=== PATIENT | female | born 1945 | race Caucasian/White ===

== ENCOUNTER 2017-04-05 12:50 | Observation (INO) | payer MEDICARE, BC ==
[~2017-04-05] VITALS: Ht 154.9 cm; Wt 94.9 kg
[~2017-04-05 12:50] MED LIST: ASPI81TA11 PO; CRAN500C2 PO; DIAZ5 PO; ESTR.3 PO; LACTCAP7 PO; LEXA10TA PO; PRAV40TA PO; VENTAER INH; XANA1TAB6 PO
[2017-04-05 13:20] VITALS: BP 135/81; PULSE 96; RESP 18; TEMP 97.8; O2SAT 94
[2017-04-05] MEDS ORDERED: ASPI-516 CHEW (13:55)
[2017-04-05] MEDS ORDERED: WARF-23 PO (13:55)
[2017-04-05] MEDS ORDERED: METF500T PO (13:55)
[2017-04-05] MEDS ORDERED: CARD120T4 PO (13:55)
[2017-04-05] MEDS ORDERED: PRAV40TA PO (13:55)
[2017-04-05] MEDS ORDERED: ADVA250A INH (13:55)
[2017-04-05] MEDS ORDERED: LEXA20TA PO (13:55)
[2017-04-05] MEDS ORDERED: ALPR.25 PO (13:55)
--- NOTE | 2017-04-05 14:04 | PD ---
HPI Chief Complaint: Abnormal Results Time Seen by Provider: 13:43 Travel History International Travel<30 days: No Contact w/Intl Traveler<30days: No Traveled to known affect area: No History of Present Illness HPI 71yo F with PMH of afib on coumadin presents to the ED for supratherapeutic INR. Pt went to get it check today and it was 8 so was sent here. Pt has a fall 5 days ago and was evaluated by [facility]. She did noticed more bruising in her right thigh and foot after that. Denies any headache, chest pain, sob, n/v, abdominal pain, black stool, blood in stool or urine, focal weakness or numbness. Last took coumadin 5mg last night. Last INR check was 2 weeks ago and it was 3 or 4. PFSH Past Medical History Hx Anticoagulant Therapy: Yes Atrial Fibrillation: Yes Depression: Yes Cancer: Yes Cardiovascular Problems: Yes (mitral valve stenosis, cardiac cath) COPD: Yes Diabetes: Yes Patient Takes Glucophage: Yes Diminished Hearing: No Endocrine: No Gastrointestinal Disorders: No (diverticulitis) Genitourinary: No Hepatitis: No Hiatal Hernia: No Hypertension: No Immune Disorder: Yes (fibromyalgia) Musculoskeletal: No Neurologic: No Psychiatric: Yes (anxiety) Reproductive: Yes Respiratory: Yes (asthma,sleep apnea,copd, uses a machine) Immunizations Current: No Thyroid Disease: No Past Surgical History Abdominal Surgery: No AICD: No Cardiac Surgery: No Ear Surgery: No Endocrine Surgery: No Eye Surgery: No Genitourinary Surgery: Yes (kidney stone removed) Gynecologic Surgery: Yes (BILATERAL S&O) Hysterectomy: Yes (partial) Joint Replacement: No Neurologic Surgery: No Oral Surgery: Yes (t and a) Pacemaker: No Thoracic Surgery: No Other Surgery: Yes Social History Alcohol Use: No Tobacco Use: No Substance Use: No Allergies-Medications (Allergen,Severity, Reaction): Coded Allergies: No Known Allergies (Verified , 12/05/15) Reported Meds & Prescriptions Reported Meds & Active Scripts Active Reported Metoprolol Tartrate 25 Mg Tab 25 Mg PO BID Cefdinir 300 Mg Cap 300 Mg PO BID Glipizide 5 Mg Tab 5 Mg PO BIDAC Take 30 minutes before a meal Montelukast (Montelukast Sodium) 10 Mg Tab 10 Mg PO HS Advair Diskus Inh (Fluticasone-Salmeterol Inh) 250-50 Mcg/Blist Aer 1 Puff INH BID Rinse mouth after use. Aspirin 81 Mg Chew 81 Mg CHEW DAILY Cardizem (Diltiazem HCl) 120 Mg Tab 120 Mg PO DAILY Warfarin 5 Mg Tab 5 Mg PO DAILY Xanax (Alprazolam) 0.25 Mg Tab 1 Mg PO Q8H PRN Lexapro (Escitalopram Oxalate) 20 Mg Tab 20 Mg PO DAILY Pravachol (Pravastatin) 40 Mg Tab 80 Mg PO DAILY Metformin (Metformin HCl) 500 Mg Tab 500 Mg PO BID With a meal Review of Systems Except as stated in HPI: all other systems reviewed are Neg Physical Exam Narrative GENERAL: 71yo F not in distress. SKIN: Ecchymoses in right lateral thigh. HEAD: Atraumatic. Normocephalic. EYES: Pupils equal and round. No scleral icterus. No injection or drainage. ENT: No nasal bleeding or discharge. Mucous membranes pink and moist. NECK: Trachea midline. No JVD. CARDIOVASCULAR: Regular rate and rhythm. No murmur appreciated. RESPIRATORY: No accessory muscle use. Clear to auscultation. Breath sounds equal bilaterally. GASTROINTESTINAL: Abdomen soft, non-tender, nondistended. MUSCULOSKELETAL: No obvious deformities. No clubbing. No cyanosis. No edema. NEUROLOGICAL: Awake and alert. No obvious cranial nerve deficits. Motor grossly within normal limits. Normal speech. PSYCHIATRIC: Appropriate mood and affect; insight and judgment normal. Data Data Last Documented VS Vital Signs Date Time Temp Pulse Resp B/P (MAP) Pulse Ox O2 Delivery O2 Flow Rate FiO2 04/05/17 13:20 97.8 96 18 135/81 (99) 94 Orders Orders Complete Blood Count With Diff (04/05/17 13:43) Basic Metabolic Panel (Bmp) (04/05/17 13:43) Prothrombin Time / Inr (Pt) (04/05/17 13:43) Act Partial Throm Time (Ptt) (04/05/17 13:43) Phytonadione (Mephyton) (04/05/17 15:45) Place In Observation (04/05/17 ) Vital Signs (Adult) Q4H (04/05/17 15:45) Activity Oob Ad Lexis (04/05/17 15:45) Sodium Chloride 0.9% Flush (Ns Flush) (04/05/17 15:45) Sodium Chloride 0.9% Flush (Ns Flush) (04/05/17 21:00) Acetaminophen (Tylenol) (04/05/17 15:45) Prothrombin Time / Inr (Pt) (04/06/17 06:00) Naloxone Inj (Narcan Inj) (04/05/17 15:45) Admit Order (Ed Use Only) (04/05/17 15:48) Labs Laboratory Tests Test 04/05/17 14:12 White Blood Count 10.0 TH/MM3 Red Blood Count 4.59 MIL/MM3 Hemoglobin 13.5 GM/DL Hematocrit 40.1 % Mean Corpuscular Volume 87.2 FL Mean Corpuscular Hemoglobin 29.4 PG Mean Corpuscular Hemoglobin Concent 33.7 % Red Cell Distribution Width 14.0 % Platelet Count 202 TH/MM3 Mean Platelet Volume 7.3 FL Neutrophils (%) (Auto) 75.1 % Lymphocytes (%) (Auto) 13.2 % Monocytes (%) (Auto) 8.0 % Eosinophils (%) (Auto) 0.3 % Basophils (%) (Auto) 3.4 % Neutrophils # (Auto) 7.6 TH/MM3 Lymphocytes # (Auto) 1.3 TH/MM3 Monocytes # (Auto) 0.8 TH/MM3 Eosinophils # (Auto) 0.0 TH/MM3 Basophils # (Auto) 0.3 TH/MM3 CBC Comment DIFF FINAL Differential Comment Prothrombin Time 88.3 SEC Prothromb Time International Ratio 8.9 RATIO Activated Partial Thromboplast Time 55.1 SEC Blood Urea Nitrogen 22 MG/DL Creatinine 0.83 MG/DL Random Glucose 99 MG/DL Calcium Level 9.2 MG/DL Sodium Level 136 MEQ/L Potassium Level 4.0 MEQ/L Chloride Level 105 MEQ/L Carbon Dioxide Level 20.1 MEQ/L Anion Gap 11 MEQ/L Estimat Glomerular Filtration Rate 68 ML/MIN Hemoglobin A1c 10.0 % MDM Medical Decision Making Medical Screen Exam Complete: Yes Emergency Medical Condition: Yes Differential Diagnosis Supratherapeutic INR Narrative Course 71yo F sent here because of supratherapeutic INR today. Denies any bleeding but does have some ecchymoses from falling over five days ago. Hemaprompt negative. Labs reviewed, no leukocytosis. H/H normal. BMP unremarkable. INR elevated at 8.9. Pt given vitamin K 2.5mg PO. Discussed with Dr. Gillis and accepted to her service. Diagnosis Primary Impression: Supratherapeutic INR Admitting Information Admitting Physician Requests: Observation Sarina Salas DO Apr 05, 2017 14:04
[2017-04-05 14:19] LABS: AUTOMATED NEUTROPHIL # 7.6 TH/MM3 (1.8-7.7); BASOPHIL # 0.3 TH/MM3 (0-0.2); BASOPHIL % 3.4 % (0.0-2.0); EOSINOPHIL % 0.3 % (0.0-4.0); HEMATOCRIT 40.1 % (35.0-46.0); LYMPH % 13.2 % (9.0-44.0); LYMPHOCYTE # 1.3 TH/MM3 (1.0-4.8); MEAN CELL VOLUME 87.2 FL (80.0-100.0); MEAN CORPUSCULAR HEMOGLOBIN 29.4 PG (27.0-34.0); MEAN CORPUSCULAR HGB CONC 33.7 % (32.0-36.0); NEUT % 75.1 % (16.0-70.0); PLATELET COUNT 202 TH/MM3 (150-450); RED BLOOD COUNT 4.59 MIL/MM3 (4.00-5.30)
[2017-04-05 14:30] LABS: HEMO FLAGS DIFF FINAL
[2017-04-05 14:37] LABS: BICARBONATE 20.1 MEQ/L (21.0-32.0)
[2017-04-05 14:40] LABS: APTT (PATIENT) 55.1 SEC (24.3-30.1); PROTHROMBIN TIME - PATIENT 88.3 SEC (9.8-11.6)
[2017-04-05 15:28] LABS: INTERNATIONAL NORMALIZED RATIO 8.9 RATIO
[2017-04-05] MEDS ORDERED: PHYTONADIONE 5 MG TAB PO ONE ×2 (15:45→16:00)
[2017-04-05] MEDS ORDERED: ACETAMINOPHEN 325 MG TAB PO PRN (15:45)
[2017-04-05] MEDS ORDERED: NALOXONE HCL 0.4 MG/ML AMP IV PUSH PRN (15:45)
[2017-04-05] MEDS ORDERED: SODIUM CHLORIDE 0.9% FLUSH 10 ML FLUSH IV FLUSH PRN (15:45)
[2017-04-05] MEDS ORDERED: MONT10TA4 PO (16:29)
[2017-04-05] MEDS ORDERED: CEFD300C PO (16:29)
[2017-04-05] MEDS ORDERED: GLIP5TAB8 PO (16:29)
[2017-04-05] MEDS ORDERED: METO25TA3 PO (16:29)
[2017-04-05 17:30] VITALS: BP 134/83; PULSE 97; RESP 20; TEMP 98.8; O2SAT 94
[2017-04-05] MEDS ORDERED: GLUCAGON 1 MG/ML VIAL OTHER PRN (17:30)
[2017-04-05] MEDS ORDERED: DEXTROSE 50% IN WATER 50 ML VIAL(D50) IV PUSH PRN (17:30)
[2017-04-05] MEDS ORDERED: ALPRAZolam 1 MG TAB PO PRN (17:45)
--- NOTE | 2017-04-05 17:51 | HHI.HP ---
[facility] Service [facility] Primary Care Physician Non-Staff Admission Diagnosis Supratherapeutic INR Diagnoses: Chief Complaint: bruisies, sent by coumadin Clinic Travel History International Travel<30 Days: No Contact w/Intl Traveler <30 Da: No Traveled to Known Affected Are: No History of Present Illness Patient is a 71 female with Afib and on Coumadin. She was recently prescribed Macrobid and Cefdinir for a uti and recently diagnosed with DM. She had noticed some bruises and petechia. She came in the room she came to the emergency room after being sent by the Coumadin clinic for an INR of 8. She had no gas intestinal bleeding or urinary bleeding but did notice some minor epistaxis. INR here is 8.9 and she does have gross bruises and petechiae visible. Patient is recommended for observation Review of Systems Constitutional: DENIES: Diaphoretic episodes, Fatigue, Fever, Weight gain, Weight loss, Chills, Dizziness, Change in appetite, Night Sweats Endocrine: DENIES: Abnorml menstrual pattern, Heat/cold intolerance, Polydipsia , Polyuria, Polyphagia Eyes: DENIES: Blurred vision, Diplopia, Eye inflammation, Eye pain, Vision loss , Photosensitivity, Double Vision Ears, nose, mouth, throat: DENIES: Tinnitus, Hearing loss, Vertigo, Nasal discharge, Oral lesions, Throat pain, Hoarseness, Ear Pain, Running Nose, Epistaxis, Sinus Pain, Toothache, Odynophagia Respiratory: DENIES: Apneas, Cough, Snoring, Wheezing, Hemoptysis, Sputum production, Shortness of breath Cardiovascular: DENIES: Chest pain, Palpitations, Syncope, Dyspnea on Exertion , PND, Lower Extremity Edema, Orthopnea, Claudication Gastrointestinal: DENIES: Abdominal pain, Black stools, Bloody stools, Constipation, Diarrhea, Nausea, Vomiting, Difficulty Swallowing, Anorexia Genitourinary: DENIES: Abnormal vaginal bleeding, Dysmenorrhea, Dyspareunia, Sexual dysfunction, Urinary frequency, Urinary incontinence, Urgency, Hematuria , Dysuria, Nocturia, Vaginal discharge Musculoskeletal: DENIES: Joint pain, Muscle aches, Stiffness, Joint Swelling, Back pain, Neck pain Integumentary: DENIES: Abnormal pigmentation, Pruritus, Rash, Nail changes, Breast masses, Breast skin changes, Nipple discharge Hematologic/lymphatic: COMPLAINS OF: Bruising, DENIES: Lymphadenopathy Immunologic/allergic: DENIES: Eczema, Urticaria Neurologic: DENIES: Abnormal gait, Headache, Localized weakness, Paresthesias, Seizures, Speech Problems, Tremor, Poor Balance Psychiatric: DENIES: Anxiety, Confusion, Mood changes, Depression, Hallucinations, Agitation, Suicidal Ideation, Homicidal Ideation, Delusions Except as stated in HPI: all other systems reviewed are Neg Past Family Social History Past Medical History Afib New DM2 COPD HAZEL Uterine CA Kidney stone Essential tremor Past Surgical History NATASHA Reported Medications Recent abx, Allergies: Coded Allergies: No Known Allergies (Verified , 12/05/15) Active Ordered Medications reviewed in the EMR Family History Healthy family Social History No tobacco or etoh, retired Physical Exam Vital Signs Vital Signs Date Time Temp Pulse Resp B/P (MAP) Pulse Ox O2 Delivery O2 Flow Rate FiO2 04/05/17 13:20 97.8 96 18 135/81 (99) 94 Physical Exam GENERAL: This is a well-nourished, well-developed patient, in no apparent distress. SKIN: No rashes,but diffuse petechia and ecchymosis. Cool and dry. HEAD: Atraumatic. Normocephalic. No temporal or scalp tenderness. EYES: Pupils equal round and reactive. Extraocular motions intact. No scleral icterus. No injection or drainage. ENT: Nose without bleeding, purulent drainage or septal hematoma. Throat without erythema, tonsillar hypertrophy or exudate. Uvula midline. Airway patent. NECK: Trachea midline. No JVD or lymphadenopathy. Supple, nontender, no meningeal signs. CARDIOVASCULAR: Regular rate and rhythm without murmurs, gallops, or rubs. RESPIRATORY: Clear to auscultation. Breath sounds equal bilaterally. No wheezes , rales, or rhonchi. GASTROINTESTINAL: Abdomen soft, non-tender, nondistended. No hepato-splenomegaly , or palpable masses. No guarding. MUSCULOSKELETAL: Extremities without clubbing, cyanosis, or edema. No joint tenderness, effusion, or edema noted. No calf tenderness. Negative Homans sign bilaterally. NEUROLOGICAL: Awake and alert. Cranial nerves II through XII intact. Motor and sensory grossly within normal limits. Five out of 5 muscle strength in all muscle groups. Normal speech. Laboratory Laboratory Tests Test 04/05/17 14:12 White Blood Count 10.0 Red Blood Count 4.59 Hemoglobin 13.5 Hematocrit 40.1 Mean Corpuscular Volume 87.2 Mean Corpuscular Hemoglobin 29.4 Mean Corpuscular Hemoglobin Concent 33.7 Red Cell Distribution Width 14.0 Platelet Count 202 Mean Platelet Volume 7.3 Neutrophils (%) (Auto) 75.1 Lymphocytes (%) (Auto) 13.2 Monocytes (%) (Auto) 8.0 Eosinophils (%) (Auto) 0.3 Basophils (%) (Auto) 3.4 Neutrophils # (Auto) 7.6 Lymphocytes # (Auto) 1.3 Monocytes # (Auto) 0.8 Eosinophils # (Auto) 0.0 Basophils # (Auto) 0.3 CBC Comment DIFF FINAL Differential Comment Prothrombin Time 88.3 Prothromb Time International Ratio 8.9 Activated Partial Thromboplast Time 55.1 Blood Urea Nitrogen 22 Creatinine 0.83 Random Glucose 99 Calcium Level 9.2 Sodium Level 136 Potassium Level 4.0 Chloride Level 105 Carbon Dioxide Level 20.1 Anion Gap 11 Estimat Glomerular Filtration Rate 68 Result Diagram: 04/05/17 1412 04/05/17 141 Caprini VTE Risk Assessment Caprini VTE Risk Assessment: Mod/High Risk (score >= 2) VTE Pharm Contraindication: Coagulopathy,INR elevated Caprini Risk Assessment Model Point Value = 1 Point Value = 2 Point Value = 3 Point Value = 5 Age 41-60 Minor surgery BMI > 25 kg/m2 Swollen legs Varicose veins or History of unexplained or recurrent spontaneous Oral contraceptives or hormone replacement Sepsis (< 1 month) Serious lung disease, including pneumonia (< 1 month) Abnormal pulmonary function Acute myocardial infarction Congestive heart failure (< 1 month) History of inflammatory bowel disease Medical patient at bed rest Age 61-74 Arthroscopic surgery Major open surgery (> 45 min) Laparoscopic surgery (> 45 min) Malignancy Confined to bed (> 72 hours) Immobilizing plaster cast Central venous access Age >= 75 History of VTE Family history of VTE Factor V Leiden Prothrombin 05201A Lupus anticoagulant Anticardiolipin antibodies Elevated serum homocysteine Heparin-induced thrombocytopenia Other congenital or acquired thrombophilia Stroke (< 1 month) Elective arthroplasty Hip, pelvis, or leg fracture Acute spinal cord injury (< 1 month) Prophylaxis Regimen Total Risk Factor Score Risk Level Prophylaxis Regimen 0-1 Low Early ambulation 2 Moderate Order ONE of the following: *Sequential Compression Device (SCD) *Heparin 5000 units SQ BID 3-4 Higher Order ONE of the following medications: *Heparin 5000 units SQ TID *Enoxaparin/Lovenox 40 mg SQ daily (WT < 150 kg, CrCl > 30 mL/min) *Enoxaparin/Lovenox 30 mg SQ daily (WT < 150 kg, CrCl > 10-29 mL/min) *Enoxaparin/Lovenox 30 mg SQ BID (WT < 150 kg, CrCl > 30 mL/min) AND/OR *Sequential Compression Device (SCD) 5 or more Highest Order ONE of the following medications: *Heparin 5000 units SQ TID (Preferred with Epidurals) *Enoxaparin/Lovenox 40 mg SQ daily (WT < 150 kg, CrCl > 30 mL/min) *Enoxaparin/Lovenox 30 mg SQ daily (WT < 150 kg, CrCl > 10-29 mL/min) *Enoxaparin/Lovenox 30 mg SQ BID (WT < 150 kg, CrCl > 30 mL/min) AND *Sequential Compression Device (SCD) Assessment and Plan Problem List: (1) Elevated INR ICD Code: R79.1 - Abnormal coagulation profile Plan: likely due to recent abx for uti (macrobid and cefidinir) repeat in am (2) DM2 (diabetes mellitus, type 2) ICD Code: E11.9 - Type 2 diabetes mellitus without complications Plan: New diagnosis Accucheck (3) Afib ICD Code: I48.91 - Unspecified atrial fibrillation Plan: On coumadin, held due to INR elevated and bruises Discussed Condition With likely dc in am pending INR Cuca Gillis MD Apr 05, 2017 17:51
[2017-04-05 20:00] VITALS: BP 128/94; PULSE 102; RESP 20; TEMP 97.6; O2SAT 96
[2017-04-05 20:42] LABS: BLOOD, URINE LARGE (NEG); GLUCOSE,URINE 1000 OR GREATER mg/dL (NEG); KETONE, URINE TRACE mg/dL (NEG); NITRITE,URINE NEG (NEG)
[2017-04-05 20:48] LABS: METHOD OF COLLECTION CLEAN CATCH
[2017-04-05 20:49] LABS: URINE COLOR AMBER (YELLW/STRAW)
[2017-04-05] MEDS: METOPROLOL TARTRATE 25 MG TAB PO SCH (20:49)
[2017-04-05] MEDS: SODIUM CHLORIDE 0.9% FLUSH 10 ML FLUSH IV FLUSH SCH (20:49)
[2017-04-05 20:50] LABS: RBC, URINE INNUM /hpf (0-3)
[2017-04-05 20:51] LABS: BACTERIA, URINE FEW /hpf; COMMENT (UR) CULTURE INDICATED; CULTURE IF INDICATED CULTURE INDICATED; SQUAMOUS EPITHELIAL CELL URINE 0-3 /hpf (0-5)
[2017-04-05] MEDS: BUDESONIDE-FORMOTEROL 160/4.5 MCG INHALER INH SCH (20:51)
[2017-04-05] MEDS ORDERED: MONTELUKAST SODIUM 10 MG TAB PO SCH (21:00)
[2017-04-05] MEDS: INSULIN ASPART SUPPLEMENTAL SCALE SQ SCH (21:30)
[2017-04-05 22:18] LABS: HEMOGLOBIN A1a 1.4 %; HEMOGLOBIN A1b 3.2 %; HEMOGLOBIN Ao 77.4 %; HEMOGLOBIN LA1C 2.2 %; HEMOGLOBIN P3 5.1 %
[2017-04-06] VITALS: BP 109/68; PULSE 94; RESP 18; TEMP 97.8; O2SAT 94
[2017-04-06] MEDS ORDERED: glipiZIDE 5 MG TAB PO SCH (07:00)
[2017-04-06 07:56] LABS: INTERNATIONAL NORMALIZED RATIO 2.1 RATIO; PROTHROMBIN TIME - PATIENT 20.9 SEC (9.8-11.6)
[2017-04-06 08:00] VITALS: BP 119/80; PULSE 88; RESP 20; TEMP 97.7; O2SAT 94
[2017-04-06] MEDS ORDERED: DILTIAZEM-CD 120 MG CAP ER PO SCH (09:00)
[2017-04-06] MEDS ORDERED: ESCITALOPRAM OXALATE 20 MG TAB PO SCH (09:00)
[2017-04-06] MEDS ORDERED: PRAVASTATIN SOD 40 MG TAB PO SCH (09:00)
[2017-04-06] MEDS: SODIUM CHLORIDE 0.9% FLUSH 10 ML FLUSH IV FLUSH SCH (09:00)
--- NOTE | 2017-04-06 09:45 | HHI.FF ---
Face to Face Verification Diagnosis: (1) DM2 (diabetes mellitus, type 2) (2) Elevated INR Home Health Nursing Order: Medical education Diabetic education Medication education-adverse effect I have seen patient Michlele Oden on 04/06/17. My clinical findings support the need for the requested home health care services because: Injectable med education/admin I certify that my clinical findings support that this patient is homebound because: Unsteady gait/balance INR check Cuca Gillis MD Apr 06, 2017 09:45
[2017-04-06] MEDS ORDERED: LANCETS1 MI1 ×2 (09:52→15:16)
[2017-04-06] MEDS ORDERED: GLUCKIT15 ×2 (09:52→15:16)
[2017-04-06] MEDS ORDERED: GLUCTES12 ×2 (09:52→15:16)
[2017-04-06] MEDS ORDERED: LEVEMIR SQ (09:52)
[2017-04-06] MEDS ORDERED: NOVOLOGP2 SQ (09:52)
[2017-04-06] MEDS ORDERED: LEVO500T8 PO (09:53)
--- NOTE | 2017-04-06 09:56 | HHI.DS ---
Discharge Summary Admission Date Apr 05, 2017 at 15:49 Discharge Date: Apr 06, 2017 Admitting Diagnosis Supratherapeutic INR (1) Elevated INR ICD Code: R79.1 - Abnormal coagulation profile (2) DM2 (diabetes mellitus, type 2) ICD Code: E11.9 - Type 2 diabetes mellitus without complications (3) Afib ICD Code: I48.91 - Unspecified atrial fibrillation Procedures none Brief History - From Admission Patient is a 71 female with Afib and on Coumadin. She was recently prescribed Macrobid and Cefdinir for a uti and recently diagnosed with DM. She had noticed some bruises and petechia. She came in the room she came to the emergency room after being sent by the Coumadin clinic for an INR of 8. She had no gas intestinal bleeding or urinary bleeding but did notice some minor epistaxis. INR here is 8.9 and she does have gross bruises and petechiae visible. Patient is recommended for observation CBC/BMP: 04/05/17 1412 04/05/17 1412 Significant Findings Laboratory Tests Test 04/05/17 14:12 04/05/17 20:37 04/06/17 06:35 Neutrophils (%) (Auto) 75.1 % (16.0-70.0) Basophils (%) (Auto) 3.4 % (0.0-2.0) Basophils # (Auto) 0.3 TH/MM3 (0-0.2) Prothrombin Time 88.3 SEC (9.8-11.6) 20.9 SEC (9.8-11.6) Prothromb Time International Ratio 8.9 RATIO Activated Partial Thromboplast Time 55.1 SEC (24.3-30.1) Blood Urea Nitrogen 22 MG/DL (7-18) Carbon Dioxide Level 20.1 MEQ/L (21.0-32.0) Estimat Glomerular Filtration Rate 68 ML/MIN (>89) Hemoglobin A1c 10.0 % (4.3-6.0) Urine Color LARUITA (YELLW/STRAW) Urine Turbidity HAZY (CLEAR) Urine Glucose (UA) 1000 OR GREATER mg/dL Urine Ketones TRACE mg/dL (NEG) Urine Occult Blood LARGE (NEG) Urine RBC INNUM /hpf (0-3) Urine WBC 9-14 /hpf (0-5) Urine Bacteria FEW /hpf (NONE) Imaging none PE at Discharge No new bruises GENERAL: This is a well-nourished, well-developed patient, in no apparent distress. CARDIOVASCULAR: Regular rate and rhythm without murmurs, gallops, or rubs. RESPIRATORY: Clear to auscultation. Breath sounds equal bilaterally. No wheezes , rales, or rhonchi. GASTROINTESTINAL: Abdomen soft, non-tender, nondistended. Normal active bowel sounds MUSCULOSKELETAL: Extremities without clubbing, cyanosis, or edema. NEURO: Alert & Oriented x4 to person, place, time, situation. Moves all ext x4 Hospital Course Patient is a 71-year-old female was seen and treated for elevated INR after antibiotics. Patient did have some bruises and this appeared to stabilize. Her repeat INR after 5 mg of vitamin K was 2.1. Patient also found to be newly diabetic and teaching was provided by nursing team and home health was arranged. Her hemoglobin A1c is 10. Patient discharge Pt Condition on Discharge: Good Discharge Disposition: Disch w/ Home Health Serv Discharge Time: <= 30 minutes Discharge Instructions DIET: Follow Instructions for: Diabetic Diet, Coumadin (Warfarin) Diet Activities you can perform: Regular-No Restrictions Follow up Referrals: PCP Follow-up - 1 Week New Medications: Blood Glucose Monitoring W/Device (Glucocom Blood Glucose Mo W/Device) 1 Kit Kit KIT .ROUTE DIRECTED for Blood Sugar Management, #1 Glucocom Test Strips (Glucocom Test Strips) 1 Maricruz Maricruz EA .ROUTE DIRECTED for Blood Sugar Management, #1 Insulin Aspart Inj (Novolog Inj) 1,000 Unit/10 Ml Vial 3 UNITS SQ ACHS for Blood Sugar Management for 30 Days, #120 UNIT 0 Refills Insulin Detemir Inj (Levemir Inj) 1,000 unit/ 10 ML Vial 10 UNITS SQ HS for Blood Sugar Management, #31 VIAL 0 Refills Do not mix with any other Insulin. Lancets (Lancets) 1 Mis Mis EA .ROUTE DIRECTED for Blood Sugar Management, #1 0 Refills Levofloxacin (Levofloxacin) 500 Mg Tablet 500 MG PO DAILY for Infection, #7 TAB 0 Refills Continued Medications: Alprazolam (Xanax) 0.25 Mg Tab 1 MG PO Q8H PRN for ANXIETY, TAB 0 Refills Aspirin (Aspirin) 81 Mg Chew 81 MG CHEW DAILY, TAB 0 Refills Diltiazem (Cardizem) 120 Mg Tab 120 MG PO DAILY for Angina, #120 TAB 0 Refills Escitalopram (Lexapro) 20 Mg Tab 20 MG PO DAILY, #30 TAB 0 Refills Fluticasone-Salmeterol Inh (Advair Diskus Inh) 250-50 Mcg/Blist Aer 1 PUFF INH BID, #1 INHALER 0 Refills Rinse mouth after use. Metoprolol Tartrate (Metoprolol Tartrate) 25 Mg Tab 25 MG PO BID, #60 TAB 0 Refills Montelukast (Montelukast) 10 Mg Tab 10 MG PO HS, #30 TAB 0 Refills Pravastatin (Pravachol) 40 Mg Tab 80 MG PO DAILY for Cholesterol Management, #30 TAB 0 Refills Warfarin (Warfarin) 5 Mg Tab 5 MG PO DAILY for Blood Clot Prevention, #30 TAB 0 Refills Discontinued Medications: Cefdinir (Cefdinir) 300 Mg Cap 300 MG PO BID for Infection, CAP 0 Refills Glipizide (Glipizide) 5 Mg Tab 5 MG PO BIDAC for Blood Sugar Management, #60 TAB 0 Refills Take 30 minutes before a meal Metformin (Metformin) 500 Mg Tab 500 MG PO BID for Blood Sugar Management, #30 TAB 0 Refills With a meal Additional Information Coumadin clinic saturday Cuca Gillis MD Apr 06, 2017 09:56
[2017-04-06] MEDS: INSULIN ASPART SUPPLEMENTAL SCALE SQ SCH ×2 (10:44→12:49)
[2017-04-06] MEDS: METOPROLOL TARTRATE 25 MG TAB PO SCH (10:45)
[2017-04-06] MEDS: BUDESONIDE-FORMOTEROL 160/4.5 MCG INHALER INH SCH (10:45)
== END 2017-04-06 13:23 | disposition home health service (06) ==
LOC: PHED 12:50 → PHEDA 15:49 → PH3A 17:06
PROVIDERS: ADMIT Hospitalist; ATTEND Hospitalist
DX: R79.1 Abnormal coagulation profile (principal); E11.9 Type 2 diabetes mellitus without complications; I48.91 Unspecified atrial fibrillation; R23.3 Spontaneous ecchymoses; J44.9 Chronic obstructive pulmonary disease, unspecified; G47.33 Obstructive sleep apnea (adult) (pediatric); G25.0 Essential tremor; I05.0 Rheumatic mitral stenosis; M79.7 Fibromyalgia; F32.9 Major depressive disorder, single episode, unspecified; F41.9 Anxiety disorder, unspecified; Z79.899 Other long term (current) drug therapy; Z79.82 Long term (current) use of aspirin; Z79.01 Long term (current) use of anticoagulants; Z79.84 Long term (current) use of oral hypoglycemic drugs; Z85.42 Personal history of malignant neoplasm of other parts of uterus
CPT/HCPCS: 80048; 81001; 82948; 83036; 85025; 85610; 85730; 87086; 96372; 97162; 99285; G0378; G8987; G8988; J1815

== ENCOUNTER 2017-04-16 19:04 | Emergency (ER) | payer MEDICARE, BC ==
[~2017-04-16] VITALS: Ht 154.9 cm; Wt 100.0 kg
[~2017-04-16 19:04] MED LIST changes: +ADVA250A INH; +ALPR.25 PO; +ASPI-516 CHEW; -ASPI81TA11 PO; +CARD120T4 PO; -CRAN500C2 PO; -DIAZ5 PO; -ESTR.3 PO; +GLUCKIT15; +GLUCTES12; -LACTCAP7 PO; +LANCETS1 MI1; +LEVEMIR SQ; +LEVO500T8 PO; -LEXA10TA PO; +LEXA20TA PO; +METO25TA3 PO; +MONT10TA4 PO; +NOVOLOGP2 SQ; -VENTAER INH; +WARF-23 PO; -XANA1TAB6 PO
[2017-04-16 19:20] VITALS: BP 136/95; PULSE 116; RESP 18; TEMP 97.6; O2SAT 95
[2017-04-16] MEDS ORDERED: SODIUM CHLORIDE 0.9% FLUSH 10 ML FLUSH IVF PRN (19:45)
--- NOTE | 2017-04-16 19:51 | PD ---
HPI Chief Complaint: Edema Time Seen by Provider: 19:27 Travel History International Travel<30 days: No Contact w/Intl Traveler<30days: No History of Present Illness HPI This is a 71 year old female who presents to the emergency department with multiple symptoms. She says the most pressing issue is today she woke up in both of her legs were swollen, constant, moderate severity, with no associated chest pain or difficulty breathing. Patient reports that she fell on March 30. Her says that prior to that he felt like she was more weak and a little bit confused. Since the fall she's had significant bruising on her legs hip and abdomen she's been having some pain in her left leg. She was seen at an outside hospital and had normal x-rays of the left lower extremity. The been trying to follow-up with a carton repairer. She takes Coumadin and she was hospitalized here earlier in the month because her INR was supratherapeutic. Since then it's been 1.2 and 1.7. She takes Coumadin for atrial fibrillation. PFSH Past Medical History Hx Anticoagulant Therapy: Yes Atrial Fibrillation: Yes Depression: Yes Cancer: Yes Cardiovascular Problems: Yes (mitral valve stenosis, cardiac cath) COPD: Yes Diabetes: Yes Diminished Hearing: No Endocrine: No Gastrointestinal Disorders: No (diverticulitis) Genitourinary: No Hepatitis: No Hiatal Hernia: No Hypertension: No Immune Disorder: Yes (fibromyalgia) Musculoskeletal: No Neurologic: No Psychiatric: Yes (anxiety) Reproductive: Yes Respiratory: Yes (asthma,sleep apnea,copd, uses a machine) Immunizations Current: No Thyroid Disease: No Past Surgical History Abdominal Surgery: No AICD: No Cardiac Surgery: No Ear Surgery: No Endocrine Surgery: No Eye Surgery: No Genitourinary Surgery: Yes (kidney stone removed) Gynecologic Surgery: Yes (BILATERAL S&O) Hysterectomy: Yes (partial) Joint Replacement: No Neurologic Surgery: No Oral Surgery: Yes (t and a) Pacemaker: No Thoracic Surgery: No Other Surgery: Yes Social History Alcohol Use: No Tobacco Use: No Substance Use: No Allergies-Medications (Allergen,Severity, Reaction): Coded Allergies: No Known Allergies (Verified Adverse Reaction, Unknown, 04/16/17) Reported Meds & Prescriptions Reported Meds & Active Scripts Active Glucocom Test Strips (Blood Glucose Test Strips) 1 Maricruz Maricruz Ea .ROUTE DIRECTED Check blood sugar 4 times daily e 11.9 Lancets 1 Mis Mis Ea .ROUTE DIRECTED Check blood sugar 4 times daily e 11.9 Glucocom Blood Glucose Mo W/Device (Device) 1 Kit Kit Kit .ROUTE DIRECTED Check blood sugar 4 times daily e 11.9 Reported Vesicare (Solifenacin) 5 Mg Tab 5 Mg PO DAILY Cefdinir 300 Mg Cap 300 Mg PO BID Janumet (Sitagliptin-Metformin) 50-500 Mg Tab 1 Tab PO BID Montelukast (Montelukast Sodium) 10 Mg Tab 10 Mg PO HS Advair Diskus Inh (Fluticasone-Salmeterol Inh) 250-50 Mcg/Blist Aer 1 Puff INH BID Rinse mouth after use. Aspirin 81 Mg Chew 81 Mg CHEW DAILY Cardizem (Diltiazem HCl) 120 Mg Tab 120 Mg PO DAILY Warfarin 5 Mg Tab 5 Mg PO DAILY Xanax (Alprazolam) 0.25 Mg Tab 1 Mg PO Q8H PRN Lexapro (Escitalopram Oxalate) 20 Mg Tab 20 Mg PO DAILY Review of Systems Except as stated in HPI: all other systems reviewed are Neg Physical Exam Narrative GENERAL: Pale, obese SKIN: Large bruise on the left lower back, scattered bruises at different stages of healing on the bilateral lower extremities. HEAD: Atraumatic. Normocephalic. EYES: Pupils equal and round. No injection or drainage. ENT: Moist mucous membranes NECK: Trachea midline. CARDIOVASCULAR: Regular rate and rhythm. No murmur appreciated. 2+ bilateral pitting edema of the lower extremities. RESPIRATORY: Clear to auscultation. Breath sounds equal bilaterally. GASTROINTESTINAL: Abdomen soft, non-tender, nondistended. MUSCULOSKELETAL: No obvious deformities. NEUROLOGICAL: Awake and alert. No obvious cranial nerve deficits. Moving all extremities. PSYCHIATRIC: Appropriate mood and affect; insight and judgment normal. Data Data Last Documented VS Vital Signs Date Time Temp Pulse Resp B/P (MAP) Pulse Ox O2 Delivery O2 Flow Rate FiO2 04/16/17 21:14 103 18 109/72 (84) 96 Room Air 04/16/17 19:20 97.6 Orders Orders Electrocardiogram (04/16/17 19:42) B-Type Natriuretic Peptide (04/16/17 19:42) Complete Blood Count With Diff (04/16/17 19:42) Comprehensive Metabolic Panel (04/16/17 19:42) Prothrombin Time / Inr (Pt) (04/16/17 19:42) Act Partial Throm Time (Ptt) (04/16/17 19:42) Ecg Monitoring (04/16/17 19:42) Bilateral Bp Monitoring (04/16/17 19:42) Iv Access Insert/Monitor (04/16/17 19:42) Oximetry (04/16/17 19:42) Oxygen Administration (04/16/17 19:42) Sodium Chloride 0.9% Flush (Ns Flush) (04/16/17 19:45) Ct Brain W/O Iv Contrast(Rout) (04/16/17 ) Urinalysis - C+S If Indicated (04/16/17 19:42) Us Leg Venous Doppler Bilat (04/16/17 ) Urine Culture (04/16/17 20:40) Labs Laboratory Tests Test 04/16/17 20:30 04/16/17 20:40 White Blood Count 6.7 TH/MM3 Red Blood Count 3.84 MIL/MM3 Hemoglobin 11.2 GM/DL Hematocrit 34.6 % Mean Corpuscular Volume 90.1 FL Mean Corpuscular Hemoglobin 29.1 PG Mean Corpuscular Hemoglobin Concent 32.3 % Red Cell Distribution Width 15.8 % Platelet Count 245 TH/MM3 Mean Platelet Volume 7.2 FL Neutrophils (%) (Auto) 75.2 % Lymphocytes (%) (Auto) 15.9 % Monocytes (%) (Auto) 7.6 % Eosinophils (%) (Auto) 0.7 % Basophils (%) (Auto) 0.6 % Neutrophils # (Auto) 5.1 TH/MM3 Lymphocytes # (Auto) 1.1 TH/MM3 Monocytes # (Auto) 0.5 TH/MM3 Eosinophils # (Auto) 0.0 TH/MM3 Basophils # (Auto) 0.0 TH/MM3 CBC Comment DIFF FINAL Differential Comment Prothrombin Time 16.5 SEC Prothromb Time International Ratio 1.6 RATIO Activated Partial Thromboplast Time 24.3 SEC Blood Urea Nitrogen 20 MG/DL Creatinine 0.68 MG/DL Random Glucose 126 MG/DL Total Protein 5.7 GM/DL Albumin 3.2 GM/DL Calcium Level 8.7 MG/DL Alkaline Phosphatase 44 U/L Aspartate Amino Transf (AST/SGOT) 17 U/L Alanine Aminotransferase (ALT/SGPT) 37 U/L Total Bilirubin 0.6 MG/DL Sodium Level 140 MEQ/L Potassium Level 3.7 MEQ/L Chloride Level 106 MEQ/L Carbon Dioxide Level 26.1 MEQ/L Anion Gap 8 MEQ/L Estimat Glomerular Filtration Rate 86 ML/MIN B-Type Natriuretic Peptide 154 PG/ML Urine Color YELLOW Urine Turbidity CLEAR Urine pH 5.5 Urine Specific Lesage 1.007 Urine Protein NEG mg/dL Urine Glucose (UA) NEG mg/dL Urine Ketones NEG mg/dL Urine Occult Blood NEG Urine Nitrite NEG Urine Bilirubin NEG Urine Leukocyte Esterase TRACE Urine RBC 0-3 /hpf Urine WBC 9-14 /hpf Urine WBC Clumps MOD Urine Squamous Epithelial Cells 0-5 /hpf Microscopic Urinalysis Comment CULTURE INDICATED MDM Medical Decision Making Medical Screen Exam Complete: Yes Emergency Medical Condition: Yes Interpretation(s) Afebrile, tachycardic due to atrial fibrillation, normotensive No leukocytosis BNP is 154 INR is 1.6 Urinalysis demonstrates urinary tract infection Last 24 hours Impressions Lower Extremity Ultrasound 04/16/17 0000 Signed Impressions: Service Date/Time: Sunday, April 16, 2017 19:57 - CONCLUSION: Negative study. No venous thrombosis of either lower extremity. Bernabe Ha MD Head CT 04/16/17 0000 Signed Impressions: Service Date/Time: Sunday, April 16, 2017 20:44 - CONCLUSION: No acute intracranial abnormality. Bernabe Ha MD Differential Diagnosis DVT, congestive heart failure, kidney failure, electrolyte abnormality, intracranial hemorrhage, supratherapeutic INR Narrative Course This is a 71-year-old female who presents to the emergency department with lower extremity edema and generalized weakness. She's had frequent falls. She was placed on a monitor and an IV was established. CT the head was reassuring in the setting of recent trauma. Labs demonstrate an indeterminate BNP better otherwise unremarkable. She follows with Dr. Solano's and I told him to follow up regarding this. Urinalysis demonstrates urinary tract infection. Patient will be placed on antibiotics. I think the patient's edema secondary to her significant bruising following her fall and her being on her feet recently in the setting of the holiday. She was advised to use compression stockings and elevate her legs and follow-up with her primary care physician. She was given copies of all her blood work and her radiology reports. Diagnosis Primary Impression: Dependent edema Additional Impression: Urinary tract infection Qualified Codes: N30.00 - Acute cystitis without hematuria Patient Instructions: General Instructions Additional Instructions: If you develop fever, persistent vomiting, back pain, or inability to eat return to the emergency department as your urine infection may have progressed to a kidney infection. Complete your antibiotics as prescribed. Keep your legs elevated and use compression stockings. Follow-up with your primary care physician. Med/Other Pt SpecificInfo: Prescription(s) given Scripts Nitrofurantoin Monohydrate Macrocrystals (Macrobid) 100 Mg Cap 100 MG PO BID for Infection for 7 Days, #14 CAP 0 Refills Prov: Andreina Brasher MD 04/16/17 Disposition: 01 DISCHARGE HOME Condition: Stable Andreina Brasher MD Apr 16, 2017 19:51
[2017-04-16] MEDS ORDERED: CEFD300C PO (19:58)
[2017-04-16] MEDS ORDERED: JANU50TA4 PO (19:58)
[2017-04-16] MEDS ORDERED: VESI5TAB2 PO (19:58)
[2017-04-16 20:00] VITALS: BP_SYST 120; BP_SYST 136; BP_DIAS 82; BP_DIAS 95; O2SAT 96
[2017-04-16 20:49] LABS: AUTOMATED NEUTROPHIL # 5.1 TH/MM3 (1.8-7.7); BASOPHIL % 0.6 % (0.0-2.0); EOSINOPHIL % 0.7 % (0.0-4.0); HEMATOCRIT 34.6 % (35.0-46.0); HEMOGLOBIN 11.2 GM/DL (11.6-15.3); LYMPH % 15.9 % (9.0-44.0); LYMPHOCYTE # 1.1 TH/MM3 (1.0-4.8); MEAN CELL VOLUME 90.1 FL (80.0-100.0); MEAN CORPUSCULAR HEMOGLOBIN 29.1 PG (27.0-34.0); MEAN CORPUSCULAR HGB CONC 32.3 % (32.0-36.0); MEAN PLATELET VOLUME 7.2 FL (7.0-11.0); MONO % 7.6 % (0.0-8.0); MONOCYTE # 0.5 TH/MM3 (0-0.9); NEUT % 75.2 % (16.0-70.0); PLATELET COUNT 245 TH/MM3 (150-450); RED BLOOD COUNT 3.84 MIL/MM3 (4.00-5.30); RED CELL DISTRIBUTION WIDTH 15.8 % (11.6-17.2); WHITE BLOOD COUNT 6.7 TH/MM3 (4.0-11.0)
[2017-04-16 20:50] LABS: CHLORIDE 106 MEQ/L (98-107); SODIUM (NA) 140 MEQ/L (136-145)
--- NOTE | 2017-04-16 20:52 | RADRPT ---
EXAM DATE/TIME: 04/16/2017 19:57 [facility] COMPARISON: No previous studies available for comparison. INDICATIONS : Bilateral leg swelling. MEDICAL HISTORY : Diverticulitis. Anticoagulant therapy. Atrial fibrillation. COPD. Diabetes. Depression. Anxiety. Ca ncer. SURGICAL HISTORY : Tonsillectomy.Hysterectomy. Adenoidectomy. ENCOUNTER: Initial ACUITY: 1 week PAIN SCORE: 4/10 LOCATION: Bilateral legs. TECHNIQUE: Venous ultrasound of the left and right leg was performed from the inguinal ligament to the proximal calf. Real-time, color Doppler and spectral tracing, compression and augmentation techniques were us ed. FINDINGS: RIGHT LEG: There is normal compressibility of the deep venous system from the inguinal region to the proximal ca lf. No echogenic clot is seen in the lumen of the common femoral, femoral, popliteal, and posterior tibial veins. There is a normal response of the venous system to proximal and distal augmentation an d respiration. LEFT LEG: There is normal compressibility of the deep venous system from the inguinal region to the proximal ca lf. No echogenic clot is seen in the lumen of the common femoral, femoral, popliteal, and posterior tibial veins. There is a normal response of the venous system to proximal and distal augmentation an d respiration. CONCLUSION: Negative study. No venous thrombosis of either lower extremity. Bernabe Ha MD on April 16, 2017 at 20:50 Board Certified Radiologist. This report was verified electronically.
[2017-04-16 20:53] LABS: CALCIUM 8.7 MG/DL (8.5-10.1)
[2017-04-16 20:54] LABS: ALBUMIN 3.2 GM/DL (3.4-5.0); BICARBONATE 26.1 MEQ/L (21.0-32.0); BLOOD UREA NITROGEN 20 MG/DL (7-18); GLUCOSE,RANDOM 126 MG/DL (74-106)
[2017-04-16 20:57] LABS: ALT (GPT) 37 U/L (10-53); AST (GOT) 17 U/L (15-37); CREATININE 0.68 MG/DL (0.50-1.00); GLOMERULAR FILTRATION RATE 86 ML/MIN (>89)
[2017-04-16 20:58] LABS: TOTAL BILIRUBIN ADULT 0.6 MG/DL (0.2-1.0); TOTAL PROTEIN 5.7 GM/DL (6.4-8.2)
[2017-04-16 21:00] LABS: ALKALINE PHOSPHATASE 44 U/L (45-117)
[2017-04-16 21:01] LABS: INTERNATIONAL NORMALIZED RATIO 1.6 RATIO; PROTHROMBIN TIME - PATIENT 16.5 SEC (9.8-11.6)
--- NOTE | 2017-04-16 21:02 | RADRPT ---
EXAM DATE/TIME: 04/16/2017 20:44 [facility] COMPARISON: No previous studies available for comparison. INDICATIONS : Trauma. Fall. RADIATION DOSE: 56.48 CTDIvol (mGy) MEDICAL HISTORY : Diabetes mellitus type 2. Chronic obstructive pulmonary disease. SURGICAL HISTORY : None. ENCOUNTER: Initial ACUITY: 3 days PAIN SCALE: 0/10 LOCATION: cranial TECHNIQUE: Multiple contiguous axial images were obtained of the head. Using automated exposure control and adj ustment of the mA and/or kV according to patient size, radiation dose was kept as low as reasonably a chievable to obtain optimal diagnostic quality images. DICOM format image data is available electro nically for review and comparison. FINDINGS: CEREBRUM: The ventricles are normal for age. No evidence of midline shift, mass lesion, hemorrhage or acute in farction. No extra-axial fluid collections are seen. POSTERIOR FOSSA: The cerebellum and brainstem are intact. The 4th ventricle is midline. The cerebellopontine angle i s unremarkable. EXTRACRANIAL: The visualized portion of the orbits is intact. SKULL: The calvaria is intact. No evidence of skull fracture. CONCLUSION: No acute intracranial abnormality. Bernabe Ha MD on April 16, 2017 at 21:00 Board Certified Radiologist. This report was verified electronically.
[2017-04-16 21:09] LABS: BILIRUBIN, URINE NEG (NEG); BLOOD, URINE NEG (NEG); GLUCOSE,URINE NEG (NEG); KETONE, URINE NEG (NEG); NITRITE,URINE NEG (NEG); PH, URINE 5.5 (5.0-8.5); URINE LEUKOCYTE ESTERASE TRACE (NEG)
[2017-04-16 21:14] VITALS: BP 109/72; PULSE 103; RESP 18; O2SAT 96
[2017-04-16 21:21] LABS: URINE COLOR YELLOW (YELLW/STRAW)
[2017-04-16 21:22] LABS: RBC, URINE 0-3 /hpf (0-3); SQUAMOUS EPITHELIAL CELL URINE 0-5 /hpf (0-5); WHITE BLOOD CELL CLUMPS MOD
[2017-04-16] MEDS ORDERED: MACR100C2 PO (21:55)
[2017-04-16 22:10] VITALS: BP 113/74; PULSE 101; RESP 18; O2SAT 96
--- NOTE | 2017-04-17 14:54 | EKG ---
Date Performed: 04/16/2017 Time Performed: 19:51:58 PTAGE: 71 years EKG: ATRIAL FIBRILLATION WITH RAPID VENTRICULAR RESPONSE ABNORMAL RHYTHM ECG PREVIOUS TRACING : 12/02/2015 14.19 DOCTOR: Yang Leonardo Interpretating Date/Time 04/17/2017 14:53:05
== END 2017-04-16 22:16 | disposition home or self-care (01) ==
LOC: PHED 19:04
DX: R60.9 Edema, unspecified (principal); N39.0 Urinary tract infection, site not specified; B96.89 Other specified bacterial agents as the cause of diseases classified elsewhere; R00.0 Tachycardia, unspecified; I48.91 Unspecified atrial fibrillation; R94.31 Abnormal electrocardiogram [ECG] [EKG]; J44.9 Chronic obstructive pulmonary disease, unspecified; E11.9 Type 2 diabetes mellitus without complications; M79.7 Fibromyalgia
CPT/HCPCS: 70450; 80053; 81001; 83880; 85025; 85610; 85730; 87086; 93005; 93970; 99285